=== PATIENT | female | born 1955 | race Caucasian/White ===

== ENCOUNTER 2020-02-27 11:50 | Emergency (ER) | payer OTHER, BC ==
[2020-02-27 12:12] VITALS: BP 130/58; PULSE 64; TEMP 98; BMI 29.1
--- NOTE | 2020-02-27 12:25 | PDOC ---
History of Present Illness - General Chief Complaint: Injury Stated Complaint: STRUCK ON HEAD Time Seen by Provider: 02/27/20 12:02 History Source: Patient Exam Limitations: No Limitations - History of Present Illness Initial Comments: 02/27/20 12:20 65y F presents with head injury. Pt was moving a microwave into the trunk of her car and she turned her head into the corner of the trunk door last . She dneis any LOC, but states she still feels funny, slightyl nauseus and some pain. She denies any vomiting, focal numbness/tingling/weakness. She does endorse occasionally blurry vision when she looks around that then clears up. Deenis any other injuries or cp/sob/cough/f/c/abd pain. PMD Karina ROS Constitutional - no reported Fever, Chills, HEENT: no reported vision changes, sore throat Respiratory: no reported cough, sob, hemoptysis Cardiac: no reported chest pain, palpitations, light headedness, leg swelling Abd/GI: +nausea, no reported abd pain, vomiting, blood per rectum, melena, diarrhea : no reported dysuria, frequency, discharge Musculskelatal - no reported back pain, joint swelling skin - no reported bruising, erythema, rash neurological: +headache, no reported numbness, focal weakness, tingling, ataxia, hematologic: no reported easy bruising, easy bleeding Exam: GENERAL: The patient is awake, alert, and fully oriented, Nontoxic - in no acute distress. HEAD: Normocephalic, Mild tenderness to the parietal aspect of the right skull, no crepitus, step-offs, ecchymosis appreciated EYES: extraocular movements intact, sclera anicteric, conjunctiva clear. ENT: Normal voice, Moist mucous membranes. NECK: Normal range of motion, supple, No focal midline cervical, thoracic tenderness. EXTREMITIES: Normal range of motion, no edema. NEUROLOGICAL: No facial assymetry, Normal speech, Moving all 4 extremities spontaneously symmetrically, Normal gait PSYCH: Normal mood, normal affect. SKIN: Warm, Dry, normal turgor, Will obtain CT of the head to rule out acute injury Patient did not declines any Tylenol Suspect possible mild concussion Past History - Medical History Allergies/Adverse Reactions: Allergies Allergy/AdvReac Type Severity Reaction Status Date / Time bee venom protein (honey bee) Allergy Severe Swelling Verified 02/27/20 12:04 hydrocodone bitartrate AdvReac Nausea Verified 12/24/11 11:46 [From Vicodin] meperidine HCl [From Demerol] AdvReac Nausea Verified 12/24/11 11:46 lobster Allergy shock Uncoded 12/24/11 11:45 Home Medications: Ambulatory Orders Amlodipine Besylate [Norvasc -] 5 mg PO DAILY 12/24/11 Omeprazole [Prilosec (RX)] 40 mg PO DAILY 12/24/11 Simvastatin 20 mg PO DAILY 12/24/11 Sumatriptan Succinate [Imitrex] 100 mg PO Q12H PRN 12/31/11 Levothyroxine [Synthroid -] 75 mcg PO DAILY 02/27/20 Magnesium 02/27/20 Potassium Gluconate [Potassium] 99 mg PO DAILY 02/27/20 Anemia: Yes Asthma: No Cancer: Yes (basal cell skin r hand) Cardiac Disorders: No CVA: No COPD: No CHF: No Dementia: No Diabetes: Yes (pre-diabetic) GI Disorders: Yes (reflux) Disorders: No HTN: Yes Hypercholesterolemia: Yes Liver Disease: No Seizures: No 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) - Surgical History Abdominal Surgery: Yes (common bile duct exploration after lap alton) Appendectomy: No Cardiac Surgery: No Cholecystectomy: Yes (lap alton) Lung Surgery: No Neurologic Surgery: No Orthopedic Surgery: No - Reproductive History Is Patient Now?: No - Psycho-Social/Smoking History Smoking History: Never smoked Have you smoked in the past 12 months: No If you are a former smoker, when did you quit?: 1984 - Substance Abuse Hx (Audit-C & DAST Scrn) How often the patient has a drink containing alcohol: Never Score: In Men: 4 or > Positive; In Women: 3 or > Positive: 0 Screen Result (Pos requires Nsg. Audit-10AR): Negative In the last yr the pt used illegal drug/Rx for NonMed reason: No Score: Yes response is considered Positive: 0 Screen Result (Positive result requires Nsg. DAST-10): Negative *Physical Exam - Vital Signs Last Vital Signs Temp Pulse Resp BP Pulse Ox 98.0 F 64 14 130/58 L 99 02/27/20 11:57 02/27/20 11:57 02/27/20 11:57 02/27/20 11:57 02/27/20 11:57 ED Treatment Course - RADIOLOGY Radiology Studies Ordered: Category Date Time Status HEAD CT WITHOUT CONTRAST [CT] Stat CT Scan 02/27/20 12:17 Ordered Medical Decision Making - Medical Decision Making 02/27/20 12:[address] neg for acute pathology will dc back to fu with pmd concussion instructions given I discussed the physical exam findings, ancillary test results and final diagnoses with the patient. I answered all of the patient's questions. The patient was satisfied with the care received and felt comfortable with the discharge plan and treatment plan. The patient will call their primary care physician within 24 hours to arrange follow-up and will return to the Emergency Department with any new, persistent or worsening symptoms. Discharge - Discharge Information Problems reviewed: Yes Clinical Impression/Diagnosis: Post concussion syndrome Head injury due to trauma Qualifiers: Encounter type: initial encounter Qualified Code(s): S09.90XA - Unspecified injury of head, initial encounter Condition: Good Disposition: HOME - Admission No - Follow up/Referral Referrals: Prince Collins MD [Primary Care Provider] - Mitchel Husain MD [Staff Physician] - - Patient Discharge Instructions Patient Printed Discharge Instructions: DI for Postconcussion Syndrome Additional Instructions: Return to the emergency department immediately with ANY new, persistent or worsening symptoms. You MUST call and follow up with your doctor tomorrow for further evaluation of your symptoms. Results were discussed with you. Please make sure your doctor reviews the results of your emergency evaluation. Your Emergency Department visit is not complete without a follow up with your doctor. If you had any xrays during your visit, it was read preliminarily by myself, a Radiologist will review it and if there are any additional findings we will call you. Print Language: AZERI - Post Discharge Activity
== END 2020-02-27 13:07 | disposition home or self-care (01) ==
LOC: FER 11:50
DX: F07.81 Postconcussional syndrome (principal); S09.90XA Unspecified injury of head, initial encounter
CPT/HCPCS: 70450-TC; 99284-25